=== PATIENT | female | born 1970 | race Caucasian/White ===

== ENCOUNTER 2016-10-10 21:55 | Emergency (ER) | payer OTHER | END 2016-10-10 22:57 | disposition home or self-care (01) | LOC: ER 21:55 | DX: H15.002 Unspecified scleritis, left eye (principal); I10 Essential (primary) hypertension; F17.200 Nicotine dependence, unspecified, uncomplicated; Z90.49 Acquired absence of other specified parts of digestive tract; Z90.710 Acquired absence of both cervix and uterus; Z79.899 Other long term (current) drug therapy ==

== ENCOUNTER 2016-10-27 17:29 | Emergency (ER) | payer OTHER | END 2016-10-27 18:49 | disposition home or self-care (01) | LOC: ER 17:29 | DX: M79.1 Myalgia (principal); I10 Essential (primary) hypertension; G25.81 Restless legs syndrome; F41.9 Anxiety disorder, unspecified; F32.9 Major depressive disorder, single episode, unspecified; F17.200 Nicotine dependence, unspecified, uncomplicated; Z90.49 Acquired absence of other specified parts of digestive tract; Z90.710 Acquired absence of both cervix and uterus; Z79.899 Other long term (current) drug therapy | CPT/HCPCS: 36415; 96372; J1885 ==